=== PATIENT | male | born 1935 | race Caucasian/White ===

== ENCOUNTER → 2018-02-08 | Outpatient (CLI) | payer MEDICARE ==
[~2018-02-08] MED LIST: ASPI-496 PO; C,E,1CAP PO; CELE200C PO; CETI-158 PO; CHOL5000 PO; ESCI10TA PO; GEMF600T4 PO; GLUC1TAB9 PO; MULT1TAB13 PO; OMEP40CA6 PO; TAMS-11 PO; TRIA15CR2 TD; VITA400T6 PO
[2018-02-08 14:53] LABS: MICROSCOPIC NOT IND
== END | disposition home or self-care (01) ==
LOC: STAR 13:43
PROVIDERS: ATTEND Urology
DX: Z01.818 Encounter for other preprocedural examination (principal); N40.1 Benign prostatic hyperplasia with lower urinary tract symptoms
CPT/HCPCS: 81003; 87086; 93005